=== PATIENT | female | born 1980 | race African-American/Black ===

== ENCOUNTER 2020-10-07 18:38 | Emergency (ER) | payer OTHER ==
[~2020-10-07] VITALS: Ht 162.6 cm; Wt 131.5 kg
[2020-10-07 19:43] LABS: ABSOLUTE NEUTROPHILS 4.1 thou/uL (1.4-8.2); BASOPHILS 0.8 % (0.0-2.0); EOSINOPHILS 2.1 % (0.0-3.0); HEMATOCRIT 37.2 % (37.0-47.0); HEMOGLOBIN 12.2 gm/dL (12.0-15.0); LYMPHOCYTES 49.3 % (24.0-44.0); MCH 27.5 pg (26.0-34.0); MCHC 32.8 g/dL (28.0-37.0); MCV 83.8 fL (80.0-100.0); MONOCYTES 5.8 % (1.0-8.0); PLATELET COUNT 365 thou/uL (150-400); RBC 4.44 mil/uL (4.20-5.00); RDW 13.9 % (10.5-14.5); WBC 9.8 thou/uL (4.0-11.0)
[2020-10-07 19:44] LABS: ANION GAP 8 mmol/L (7-16); BUN 11 mg/dL (7-18); CHLORIDE 101 mmol/L (98-107); CO2 26 mmol/L (21-32); CREATININE 0.8 mg/dL (0.6-1.0); GLUCOSE 98 mg/dL (74-106); POTASSIUM 3.5 mmol/L (3.5-5.1); SODIUM 135 mmol/L (136-145)
[2020-10-07 19:54] LABS: ALBUMIN 3.9 g/dL (3.4-5.0); SGOT 17 U/L (15-37); SGPT 23 U/L (30-65); TOTAL BILIRUBIN 0.3 mg/dL (0.2-1.0); TOTAL PROTEIN 7.9 g/dL (6.4-8.2); TROPONIN-I <0.06 ng/mL (<0.06)
[2020-10-07 22:28] VITALS: BP 129/87
--- NOTE | 2020-10-08 07:30 | EKG ---
[address] [address] ELECTROCARDIOGRAM REPORT Name: ORIANA GREEN Room #: DEP FERN Correa#: [id number] Admission: 10/07/20 Attend Phys: Discharge: 10/07/20 Date of : 76 Report #: [id number] [facility] ED Test Date: 2020-10-07 Test Time: 18:41:34 Pat Name: ORIANA GREEN Department: Room: Gender: F Facilities Maintenance Supervisor: ALEXSANDER : 1980 Requested By: Caden Vega Order Number: [id number] MD: Prashant Waters Measurements Intervals [place] Rate: 133 P: 46 MO: 140 QRS: 11 QRSD: 83 T: -14 QT: 291 QTc: 433 Interpretive Statements Sinus tachycardia Borderline T abnormalities, inferior leads No previous ECG available for comparison Electronically Signed On 10-08-2020 7:30:43 CDT by Prashant Waters [email or web address] <ELECTRONICALLY SIGNED> By: Prashant Waters MD, [facility] 10/08/20 0730 184 1841 Prashant Waters MD, FACC /EPI
== END 2020-10-07 22:35 | disposition home or self-care (01) ==
LOC: ER 18:38
PROVIDERS: Emergency Medicine
DX: R00.0 Tachycardia, unspecified (principal); I10 Essential (primary) hypertension; F41.9 Anxiety disorder, unspecified; Z88.8 Allergy status to other drugs, medicaments and biological substances; Z88.0 Allergy status to penicillin